=== PATIENT | female | born 1965 ===

== ENCOUNTER 2024-12-04 09:30 | Inpatient (IN) | payer OTHER ==
[~2024-12-04] VITALS: Ht 154.9 cm; Wt 80.7 kg
[2024-12-04 10:25] LABS: BASO % 0.8 % (0.1-1.2); EOS # 0.07 (0.04-0.54); EOS % 2.0 % (0.7-7.0); LYMPH # 1.54 (1.18-3.74); LYMPH % 43.1 % (19.3-53.1); MEAN PLATELET VOLUME 10.00 fl (9.4-12.4); MONO # 0.45 (0.24-0.82); NEUT # 1.46 (1.56-6.13); NEUT % 40.9 % (34.0-71.1); RED CELL DISTRIBUTION WIDTH 12.5 % (11.6-14.4)
[2024-12-04 10:26] LABS: URINE APPEARANCE Clear; URINE BILIRRUBIN Negative (NEGATIVE); URINE BLOOD Negative; URINE COLOR Yellow; URINE GLUCOSE Negative (NEGATIVE); URINE KETONE Negative (NEGATIVE); URINE LEUKOCYTE Trace; URINE NITRATE Negative; URINE PROTEIN Negative (NEGATIVE); URINE UROBILINOGEN 1.0 E.U./dl
[2024-12-04 10:26] LABS: MONO % 12.6 % (4.7-12.5)
[2024-12-04 10:32] LABS: URINE BACTERIA 127.2 uL (0.0-1933); URINE EPITHELIAL CELLS 3.8 uL (0.0-38.8); URINE RBC 2.0 uL (0.0-20.8); URINE WBC 5.9 uL (0.0-23.2)
[2024-12-04 10:40] LABS: URINE CAST 0.00 uL (0.0-1.40)
[2024-12-04 10:43] VITALS: BP 136/90
[2024-12-04] MEDS ORDERED: HYDRALAZINE HCL25 MG PO (10:47)
[2024-12-04] MEDS ORDERED: LEVOTHYROXINE25 MCG PO (10:47)
[2024-12-04] MEDS ORDERED: COZAAR100 MG PO (10:48)
[2024-12-04] MEDS ORDERED: HYDROCHLOROTHIA25 MG PO (10:48)
[2024-12-04] MEDS ORDERED: METFORMIN HCL500 M3 PO (10:48)
[2024-12-04] MEDS ORDERED: PEPCID AC20 MG (10:49)
[2024-12-04] MEDS ORDERED: VITAMIN D (10:49)
[2024-12-04] MEDS ORDERED: BENTYL (10:50)
[2024-12-04] MEDS ORDERED: ZETIA10 MG (10:50)
[2024-12-04 11:13] LABS: ALT/SGPT 21.0 U/L (12-78); AST/SGOT 11.0 U/L (15-37); BILIRUBIN TOTAL 0.83 mg/dL (0.3-1.2); BUN CREA RATIO 27.0 (7.0-25.0); CREATININE SERUM 0.62 mg/dL (0.55-1.02); GFR 98.52; GLOBULINA 3.3 G/DL (2.4-3.5); GLUCOSE FASTING 99.0 mg/dL (65-100); OSMOLALITY SERUM 285.0 MOSM/KG (275-295)
[2024-12-04 11:51] LABS: INR 0.99
[2024-12-07] MEDS ORDERED: ENALAPRILAT DIHYDRATE 1.25 MG/ML VIAL IV PRN (08:45)
[2024-12-07] MEDS ORDERED: ONDANSETRON HCL 2 MG/ML VIAL IV PRN (08:45)
[2024-12-07] MEDS ORDERED: ACETAMINOPHEN 500 MG GEL..CAP PO SCH (09:00)
[2024-12-07] MEDS ORDERED: TRAMADOL HCL 50 MG TABLET PO SCH (09:00)
[2024-12-07] MEDS ORDERED: HYDROCHLOROTHIAZIDE 25 MG TABLET PO SCH (09:00)
[2024-12-07] MEDS ORDERED: DIPHENHYDRAMINE HCL 75 MG,LIDOCAINE HCL 30 ML,MAG HYDROX/ALUMINUM HYD/SIMETH 30 ML PO SCH (09:00)
[2024-12-07] MEDS ORDERED: LOSARTAN POTASSIUM 100 MG TABLET PO SCH (09:00)
[2024-12-07] MEDS ORDERED: DEXAMETHASONE SODIUM PHOSPHATE 4 MG/ML VIAL ONE (09:13)
[2024-12-07] MEDS ORDERED: LEVOTHYROXINE SODIUM 25 MCG TABLET PO NR (09:15)
[2024-12-07] MEDS ORDERED: MORPHINE SULFATE 4 MG/ML VIAL IV ONE ×2 (12:50→14:45)
[2024-12-07] MEDS ORDERED: MAG HYDROX/ALUMINUM HYD/SIMETH 30 ML BLIST.PACK PO ONE (15:27)
[2024-12-07] MEDS ORDERED: GABAPENTIN 100 MG CAPSULE PO ONE (16:43)
[2024-12-07] MEDS ORDERED: ACETAMINOPHEN 500 MG GEL..CAP PO ONE (16:43)
[2024-12-07] MEDS ORDERED: CYCLOBENZAPRINE HCL 5 MG TABLET PO SCH (17:00)
[2024-12-07] MEDS ORDERED: GABAPENTIN 100 MG CAPSULE PO SCH (17:00)
[2024-12-07 18:25] VITALS: BP 146/84; O2SAT 97
[2024-12-07] MEDS ORDERED: PANTOPRAZOLE SODIUM 40 MG/VIAL VIAL IV PUSH SCH (21:00)
[2024-12-08] VITALS: BP 147/82; O2SAT 97
[2024-12-08] MEDS ORDERED: LEVOTHYROXINE SODIUM 25 MCG TABLET PO SCH (06:00)
[2024-12-08] MEDS ORDERED: MAG HYDROX/ALUMINUM HYD/SIMETH 30 ML BLIST.PACK PO ONE (07:13)
[2024-12-08 08:30] VITALS: BP 129/82
== END 2024-12-08 11:07 | disposition home or self-care (01) | DRG 627 ==
LOC: O/R 12-07 06:15 → SURH 12-07 07:00
PROVIDERS: ADMIT Surgery; ATTEND Surgery
PROC: 0GBM0ZZ Excision of Left Superior Parathyroid Gland, Open Approach (ICD-10-PCS; 2024-12-07)
PROC: 0GBN0ZZ Excision of Right Inferior Parathyroid Gland, Open Approach (ICD-10-PCS; 2024-12-07)
PROC: 0GBP0ZZ Excision of Left Inferior Parathyroid Gland, Open Approach (ICD-10-PCS; principal; 2024-12-07 07:00)
DX: D35.1 Benign neoplasm of parathyroid gland (principal); E21.0 Primary hyperparathyroidism